=== PATIENT | female | born 1975 | race Caucasian/White ===

== ENCOUNTER 2019-08-17 07:11 | Outpatient (CLI) | payer OTHER, SELFPAY ==
[2019-08-17 07:47] LABS: Hematocrit 41.5 % (37.0-47.0)
== END 2019-08-17 07:12 | disposition home or self-care (01) ==
LOC: ANHLAB 07:13
PROVIDERS: Visit Provider Student in an Organized Health Care Education/Training Program
DX: Z01.818 Encounter for other preprocedural examination (principal); N84.0 Polyp of corpus uteri
CPT/HCPCS: 36415; 85014; 85018

== ENCOUNTER 2019-08-20 06:24 | Outpatient (CLI) | payer OTHER, SELFPAY ==
[2019-08-20 18:35] LABS: SARS-CoV-2 RNA PCR Negative
== END 2019-08-20 06:25 | disposition home or self-care (01) ==
LOC: ANHCOVIDDT 06:24
PROVIDERS: Visit Provider Student in an Organized Health Care Education/Training Program
DX: Z01.818 Encounter for other preprocedural examination (principal); Z11.59 Encounter for screening for other viral diseases
CPT/HCPCS: 87635; C9803; U0003

== ENCOUNTER 2019-08-22 02:00 | Day surgery (SDC) | payer OTHER, SELFPAY ==
[2019-08-16 16:11] VITALS: BMI 29.0
--- NOTE | 2019-08-22 06:57 | PM.IMHP ---
H&P: HPI History of Present Illness Chief complaint: Uterine Polyp/ Irregular Bleeding Narrative: Priyanka Dyer is a 44 year old female who presented to the office for IUD removal. The IUD removal was complicated by the presence of a cervical polyp. Attempt at in office IUD removal was unsuccessful due to endocervical canal obstruction by polyp. Pt was then scheduled for Hysteroscopy, polypectomy and IUD removal. Review of Systems Review of Systems: All systems reviewed & are unremarkable except as noted in HPI and below Cardiovascular: Cardiovascular: Denies chest pain, Denies leg edema, Denies palpitations, Denies dyspnea and Denies dyspnea on exertion Respiratory: Respiratory: Denies cough, Denies dyspnea and Denies dyspnea on exertion Gastrointestinal: Gastrointestinal: Denies abdominal pain, Denies constipation, Denies diarrhea, Denies nausea and Denies vomiting Genitourinary: Genitourinary: Denies hematuria, Denies urinary frequency, Denies dysuria, Denies pelvic pain, Denies urinary incontinence and Denies vaginal discharge Neurologic: Reports system reviewed and no additional complaints, except as documented Psychiatric: Psychiatric: Reports no additional psychiatric complaints Endocrine: Endocrine: Denies palpitations [facility] Family History Family History (Updated 09/18/18 @ 10:39 by DOCTOR UNKNOWN) Father Malignant neoplasm of prostate Family history of heart disease in male family member before age 55 Mother Family history of rheumatoid arthritis Other Hypertension Social History Social History Smoking status: Never smoker Second hand tobacco smoke exposure: No Alcohol intake: never Meds Home Medications and Allergies Home Medications Medication Instructions Recorded Confirmed Type fluticasone propionate [Flonase 1 spray INTRANASAL BID 08/16/19 08/16/19 History Allergy Relief] Allergies Allergy/AdvReac Type Severity Reaction Status Date / Time latex Allergy Unknown Itching Verified 08/16/19 16:12 Exam Const: General: no acute distress Eyes: EOM: EOMs intact bilaterally Neck: Neck: supple Thyroid: thyroid normal Chest: Breast/axilla inspection: normal inspection of the breasts Breast/axilla palpation: normal palpation of the breasts, normal palpation of the axillae and no axillary lymphadenopathy Resp: Effort & Inspection: normal respiratory effort Auscultation: clear to auscultation bilaterally Cardio: Rate: regular rate Rhythm: regular rhythm GI: Inspection: non-distended GI Palp: Yes Soft to palpation, No Tenderness to palpation present (GI) and No Guarding due to palpation present (GI) Auscultation: normal bowel sounds : General: No bladder normal to palpation External Female Exam: normal external appearance Speculum Exam - Vagina: normal vaginal discharge and No vaginal bleeding Speculum Exam - Cervix: nontender Bimanual exam- vagina & uterus: No bladder normal to palpation and No Cervical tenderness present OB/external & speculum: No vaginal bleeding Skin: General skin exam: normal color and no rashes or lesions noted Neuro: Cognition (Neuro): normal cognition Speech: normal speech Extrem: General: normal to inspection and no edema Psych: Mental Status: mental status grossly normal Affect: normal affect Assessment and Plan Assessment and plan (1) Polyp at cervical os: Code(s): N84.1 - Polyp of cervix uteri Status: Acute Assessment and Plan: polyp noted to obstruct endocervical canal plan for hysteroscopy and polypectomy (2) IUD (intrauterine device) in place: Code(s): Z97.5 - Presence of (intrauterine) contraceptive device Status: Acute Assessment and Plan: IUD in place, plan for removal at the time of polypectomy
[2019-08-22 10:15] VITALS: BP 133/97; PULSE 67; TEMP 37.6; O2SAT 99
[2019-08-22] MEDS: LACTATED RINGERS 1,000 ML 30 ML IV CONT (10:32)
--- NOTE | 2019-08-22 11:04 | WPDANESEPPF ---
Anes - Initial Pre Proc Eval Procedure: Operation Date: 08/22/19 12:00 Proposed Procedures p Hysteroscopy, Dilation And Curettage With Polypectomy - Espinoza Hauser MD Date/Time: 08/22/19 11:04 Surgeon: Espinoza Hauser MD Pre Op Diagnosis: Uterine Polyp/ Irregular Bleeding Patient Data Age: 44 Gender: F Height: 5 ft 6 in Weight: 84.1 kg Last Vital Signs Temp 37.6 C H 08/22/19 10:15 Pulse 67 08/22/19 10:15 BP 133/97 H 08/22/19 10:15 Pulse Ox 99 08/22/19 10:15 Allergies Allergy/AdvReac Type Severity Reaction Status Date / Time latex Allergy Unknown Itching Verified 08/16/19 16:12 Home Medications Medication Instructions Recorded Confirmed Type fluticasone propionate [Flonase 1 spray INTRANASAL BID 08/16/19 08/22/19 History Allergy Relief] Patient hx anesthesia problems: post op nausea/vomiting Family hx anesthesia problems: none PMFSH Family History Family History Father Malignant neoplasm of prostate Family history of heart disease in male family member before age 55 Mother Family history of rheumatoid arthritis Other Hypertension Social History Social History Smoking status: Never smoker Second hand tobacco smoke exposure: No Alcohol intake: never Anes - Eval Final PreProcedure Day of Procedure 08/22/19 11:04 Patient weight: overweight Heart: regular rate and rhythm Lungs: clear to auscultation Airway: Mallampati scale class II Neurological: alert and oriented Last oral intake: >/= 8 hours ASA classification: II Emergent: no Anesthetic plan: proceed Anesthesia type and monitoring: general GIVS and standard monitoring Informed Consent: The patient's anesthetic plan and its attendant risks and benefits were discussed with the patient/family/POA. Questions were solicited and answers provided to the satisfaction of the patient/family/POA.
[2019-08-22] MEDS: SCOPOLAMINE 1.5 MG PATCH TRANSDERM (11:10)
[2019-08-22] MEDS: LIDOCAINE HCL 1% LOCAL INJ 20 ML VIAL INFILTRATE (12:24)
--- NOTE | 2019-08-22 12:33 | PM.PROC ---
Procedure Note - Detailed Date of procedure: 08/22/19 Pre-op diagnosis: Uterine Polyp/ Irregular Bleeding Post-op diagnosis: same Procedure performed: Paracervical block, Hysteroscopy, polypectomy, IUD removal Description of procedure: The patient was taken to the OR and general anesthesia induced. She was prepped and draped in Yellow fin stirrups with support of the back and bilateral lower extremities. I/O catheterization performed of the bladder. The polyp was identified proturding through the external cervical os. Infiltration with 1% lidocaine at the 3 and 9 o'clock cervical positions was performed. The polyp was grasped with polyp forceps. The polyp was twisted around its stalk and removed easily with tension. After removal of the polyp, the IUD strings were easily visualized at the cervical os. The strings were grasped with Ring forceps and the IUD was removed without difficulty. The IUD was inspected and noted to be intact with strings attached. A single tooth tenaculum was placed on the anterior lip of the cervix. The cervix was dilated with sequential Dolly dilators. Hysteroscopy, using a normal saline medium, was performed and showed a normal endometrial cavity with normal appearing tubal ostia bilaterally. Sharp uterine curettage was then performed and tissue placed on Telfa. The tenaculum was removed and hemostasis was observed. The patient tolerated the procedure well. Sponge, lap, and needle counts were correct. The patient had SCD's on throughout the case for VTE prophylaxis. The patient was taken to the recovery room in stable condition. Anesthesia: GETA Surgeon: Espinoza Hauser MD Estimated blood loss (mL): 15 Urine output (mL): 10 Drains: No Packing: No Pathology: yes (endometrial curettings, endometrial polyp ) Complications: No immediate complications Condition: stable Disposition: PACU Findings: endometrial polyp protruding through the external cervical os. Normal appearing uterine cavity and tubal ostia bilaterally.
[2019-08-22 12:38] VITALS: BP 146/93; PULSE 77; RESP 16; O2SAT 98
[2019-08-22 13:10] VITALS: BP 147/91; PULSE 62; RESP 16
[2019-08-22 13:40] VITALS: BP 140/90; PULSE 55; RESP 14
== END 2019-08-22 13:45 | disposition home or self-care (01) ==
PROVIDERS: Visit Provider Student in an Organized Health Care Education/Training Program
PROC: 0U5B8ZZ Destruction of Endometrium, Via Natural or Artificial Opening Endoscopic (ICD-10-PCS; CPT 58563; principal; 2019-08-22 12:00)
DX: N84.0 Polyp of corpus uteri (principal); N93.9 Abnormal uterine and vaginal bleeding, unspecified; Z30.432 Encounter for removal of intrauterine contraceptive device
CPT/HCPCS: 58558; 58301; 88305; A9270; J2250; J3010; J7030; J7120

== ENCOUNTER 2020-06-27 19:07 | Emergency (ER) | payer OTHER, SELFPAY ==
[2020-06-27] VITALS (10 sets, daily range): BP systolic 150–191; BP diastolic 107–122; PULSE 67–94; RESP 13–18; TEMP 36.4; O2SAT 97
--- NOTE | ~2020-06-27 | CT_ITS ---
EXAMINATION: CT brain wo con DATE: 06/27/2020 19:32 INDICATION: Generalized headache. Hypertension. TECHNIQUE: Computed tomography (CT) of the head was performed without intravenous contrast. The mA wa s adjusted according to patient size. Iterative reconstruction technique was employed. Exam dose: 60 5.33 mGy-cm total exam DLP. COMPARISON: None FINDINGS: No intracranial mass lesion or hemorrhage or cerebrovascular accident. No midline shift or mass effect. Normal rogers-white matter differentiation. Normal ventricular size. No subdural or epidur al hematoma. The orbits are normal. There is patchy soft tissue opacification of the ethmoid air cells bilaterally. Mastoid air cells are normally developed and aerated. No fracture or bone destruction cranial vault. IMPRESSION: No significant intracranial abnormality Patchy soft tissue opacification of ethmoid air cells bilaterally Reviewed, dictated and finalized at [facility] Reviewed, dictated and finalized at [facility].
--- NOTE | 2020-06-27 19:23 | ECG_ITS ---
Measurements Intervals [place] Rate: 92 P: 59 TN: 147 QRS: 52 QRSD: 85 T: 29 QT: 353 QTc: 438 Interpretive Statements SINUS RHYTHM BORDERLINE ST-T WAVE ABNORMALITY- ANTEROLAT/INF LEADS BASELINE WANDER- II, III, V3-V4 BORDERLINE ECG Electronically Signed On 06-27-2020 19:36:10 CDT by Marvin Murray D.O.
--- NOTE | 2020-06-27 19:23 | ED.GENADULT ---
HPI - General Adult General Chief complaint: Recheck/Abnormal Lab/Rx Stated complaint: h/a, high blood pressure reading Time Seen by Provider: 06/27/20 19:19 Source: RN notes reviewed History of Present Illness HPI narrative: Patient presents to emergency department from home for elevated blood pressure. Patient states that she has a history of hypertension in her 30s and has been on metoprolol in the past she states that her blood pressure improved with medication for several years she states that over the past several weeks she has felt like her blood pressure has been increasing and she has felt hot she is for the past 2 days she is had a headache at the top of her head described as aching does not radiate states she took ibuprofen earlier today with no relief she denies any fevers or chills vision changes, chest pain, shortness of breath, abdominal pain, nausea vomiting, numbness or tingling extremities or any other symptoms she states she does not currently have a PCP. Related Data Home Medications Medication Instructions Recorded Confirmed fluticasone propionate [Flonase 1 spray INTRANASAL BID 08/16/19 08/22/19 Allergy Relief] Allergies Allergy/AdvReac Type Severity Reaction Status Date / Time latex Allergy Unknown Itching Verified 06/27/20 19:14 Review of Systems Review of Systems: Narrative: Gen.: Denies fevers or chills Eyes: Denies eye pain or visual change ENT: Denies congestion Respiratory: Denies shortness of breath or cough CV: Denies chest pain or palpitations GI: Denies abdominal pain nausea, emesis or diarrhea Musculoskeletal: Denies back pain or muscle pain Neuro: Reports headache Skin: Denies rash Except as documented, all other systems reviewed and negative [facility] Past Medical History Medical History Polyp at cervical os Family History Family History Father Malignant neoplasm of prostate Family history of heart disease in male family member before age 55 Mother Family history of rheumatoid arthritis Other Hypertension Social History Social History Smoking status: Never smoker Second hand tobacco smoke exposure: No Alcohol intake: never Exam Narrative: Exam Narrative: APPEARANCE: No acute distress, nontoxic, resting in bed EYES: EOMI, PERRL HEENT: Normocephalic, atraumatic, OMM RESPIRATORY: No respiratory distress Clear to auscultation bilaterally with no rhonchi wheezing or rales. CARDIOVASCULAR: Regular rate and rhythm without murmurs rubs or gallops. ABDOMINAL: Soft, nontender, nondistended, no rebound or guarding MUSCULOSKELETAl: Moves all extremities. No clubbing, cyanosis or edema. NEURO: Awake and alertx 4. Following commands, speech normal, no focal deficits SKIN:: Warm, dry. No rashes lesions or abrasions PSYCHIATRIC: Normal affect/mood, Course Course Emergency Course: Patient states headache is resolved at this time Discussed with patient results of workup and diagnosis. Discussed need for follow-up with primary care, proper use of medication, and reasons to return to the emergency department. Patient understands and agrees to current treatment plan Vital Signs Vital signs: Vital Signs Temperature 97.6 F 06/27/20 19:10 Pulse Rate 94 06/27/20 19:10 Respiratory Rate 18 06/27/20 19:10 Blood Pressure 173/122 H 06/27/20 19:10 Pulse Oximetry 97 06/27/20 19:10 Temperature 97.6 F 06/27/20 19:10 Pulse Rate 85 06/27/20 20:23 Respiratory Rate 14 06/27/20 20:23 Blood Pressure 150/110 H 06/27/20 22:20 Pulse Oximetry 97 06/27/20 20:23 Medical Decision Making MDM Narrative Medical decision making narrative: Patient's headache was not sudden or maximal in onset. There are no focal deficits on exam. Subarachnoid hemorrhage is felt to be unlikely at this time. There is no his
[2020-06-27 19:33] LABS: Basophils Absolute Auto 0.1 K/mm3 (0.0-0.1); Basophils Percent Auto 1.2 % (0.2-1.2); Eosinophils Absolute Auto 0.3 K/mm3 (0-0.3); Hematocrit 42.8 % (37.0-47.0); Hemoglobin 14.7 g/dL (12.0-15.0); Immature Granulocyte Absolute 0.02 K/mm3 (0.00-0.031); Immature Granulocyte Percent A 0.3 % (0-0.5); Lymphocytes Absolute Auto 3.13 K/mm3 (0.9-3.2); Lymphocytes Percent Auto 46.6 % (18.3-44.2); Mean Corpuscular HGB Conc 34.3 g/dl (32-36); Mean Corpuscular Hemoglobin 29.9 pg (26-34); Mean Corpuscular Volume 87.2 fl (80-100); Mean Platelet Volume 10.9 fl (7.4-10.4); Monocytes Absolute Auto 0.5 K/mm3 (0.1-0.6); Monocytes Percent Auto 6.8 % (2.6-8.5); Neutrophils Absolute Auto 2.8 K/mm3 (1.3-6.7); Neutrophils Percent Auto 41.1 % (45.5-73.1); Platelet Count Result 331 k/mm3 (150-375); Red Blood Count 4.91 M/mm3 (4.2-5.4); Red Cell Distribution Width 12.1 % (11.5-14.5); White Blood Count 6.7 K/mm3 (4.5-10.0)
[2020-06-27] MEDS: SODIUM CHLORIDE 0.9% IV 1,000 ML 999 ML IV CONT (19:41)
[2020-06-27 19:45] LABS: Alanine Aminotransferase 23 U/L (4-35); Albumin Level 4.5 g/dL (3.5-5.1); Alkaline Phosphatase 53 U/L (38-126); Anion Gap 9 mmol/L (8-16); Aspartate Amino Transferase 25 U/L (14-36); Bilirubin,Total 0.2 mg/dL (0.2-1.3); Blood Urea Nitrogen 18 mg/dL (7-17); Calcium 9.4 mg/dL (8.4-10.2); Carbon Dioxide 24 mmol/L (22-30); Chloride 107 mmol/L (98-107); Estimated CRCL calculation 68 ml/min; Estimated Glomerular Filt Rate 60; Glucose 91 mg/dL (65-105); Potassium 3.4 mmol/L (3.4-5.0); Sodium 140 mmol/L (137-145)
[2020-06-27] MEDS: cloNIDine HCL 0.1 MG TABLET PO (20:42)
[2020-06-27 22:40] LABS: Add Urine Microscopic? YES; Appearance Urine Cloudy (Clear); Bilirubin Urine Negative (Negative); Blood Urine 2+ (Negative); Color Urine Straw (Yellow); Glucose Urine UA Negative (Negative); Ketones Urine Negative (Negative); Leukocyte Esterase Ur 1+ LEU/UL (Negative); Nitrate Urine Negative (Negative); Protein Urine Negative (Negative); RBC Urine 0-2 /hpf (0-2); Squamous Epithelial Cell Urine Many /hpf (Few); Urobilinogen Urine Negative mg/dL (<2.0)
[2020-06-27] MEDS: NITROFURANTOIN MONOHYD MACROCR 100 MG CAP PO (23:07)
== END 2020-06-27 23:16 | disposition home or self-care (01) ==
PROVIDERS: Emergency Provider Emergency Medicine
DX: I10 Essential (primary) hypertension (principal); R51.9 Headache, unspecified; N39.0 Urinary tract infection, site not specified
CPT/HCPCS: 36415; 70450; 80053; 81001; 85025; 87077; 87086; 87088; 93005; 96365; 99284; A9270; J0131; J7030

== ENCOUNTER 2021-09-02 22:06 | Emergency (ER) | payer OTHER, SELFPAY ==
[2021-09-02 22:08] VITALS: BP 121/98; PULSE 80; RESP 18; TEMP 36.8; O2SAT 98
[2021-09-02] MEDS: LORATADINE 10 MG TABLET PO (22:55)
[2021-09-02] MEDS: diphenhydrAMINE HCl INJ 50 MG/ML VIAL 25 MG IV PUSH (22:55)
--- NOTE | 2021-09-03 00:57 | ED.ALLEREA ---
HPI - Allergic Reaction General Chief complaint: Allergic Reaction Stated complaint: allergic reaction Time Seen by Provider: 09/02/21 22:21 History of Present Illness HPI narrative: Patient is a 46-year-old female who presents ER with rash. Symptoms began occurring spontaneously 1 day ago. She has been taking Benadryl 50 mg every 6 hours. She was seen at an urgent care and prescribed a Medrol Dosepak. She has had the first day of pills. She also received a steroid shot prior to filling the Dosepak which helped the symptoms. She reports she will get a little swelling to her upper lip. She gets urticaria and redness with pruritus to the arms and legs as well as her palms. She has no new exposures to soaps or perfumes. No change in laundry detergent or fabric softener. She is on no oral medications other than what his been prescribed for her new rash. She reports 3 days prior to onset she had been exposed to a couple of dogs but she had since taken a shower and was not wearing same clothes. There is 1 cat in the house that they have had for over a year. Patient reports she has an aunt that suffers from idiopathic urticaria. Related Data Home Medications Medication Instructions Recorded Confirmed fluticasone propionate 50 1 spray intranasal BID 08/16/19 08/22/19 mcg/actuation nasal spray,suspension (Flonase Allergy Relief) Allergies Allergy/AdvReac Type Severity Reaction Status Date / Time latex Allergy Unknown Itching Verified 06/27/20 19:14 Review of Systems Review of Systems: All systems reviewed & are unremarkable except as noted in HPI and below Constitutional: Constitutional: Denies chills, Denies fatigue and Denies fever(s) ENT: Denies nasal congestion and Denies sore throat Comments: No dysphagia Cardiovascular: Cardiovascular: Denies chest pain, Denies rapid heart rate and Denies radiating jaw, neck or arm pain Respiratory: Respiratory: Denies chest congestion, Denies cough and Denies dyspnea Gastrointestinal: Gastrointestinal: Denies abdominal pain, Denies nausea and Denies vomiting Integumentary/Breasts: Skin/Breast: Reports pruritus, Reports erythema, Reports rash and Denies skin ulcer PMFSH Past Medical History Medical History (Updated 09/03/21 @ 02:00 by Vito Hess MD) Hyperlipidemia Hypertension Hypothyroidism Polyp at cervical os Family History Family History Father Malignant neoplasm of prostate Family history of heart disease in male family member before age 55 Mother Family history of rheumatoid arthritis Other Hypertension Social History Social History Smoking status: Never smoker Second hand tobacco smoke exposure: No Alcohol intake: never Exam Narrative: GENERAL: Well-appearing, well-nourished, and in no acute distress. HEAD: Normocephalic, atraumatic. EYES: PERRL and EOMI. ENT Mucous membranes moist. Very slight swelling right upper lip. No severe lingular swelling or edema to the tongue. Normal-appearing posterior oropharynx. NECK: Supple. CHEST: Clear to auscultation. No respiratory distress. HEART: Regular rate and rhythm. Normal peripheral pulses. ABDOMEN: Soft, nontender, nondistended. EXTREMITIES: Normal range of motion. No edema. SKIN: Warm, dry. Urticarial rash most notable in the upper extremities and over the same of the palms. Also present over the kneecaps bilaterally. Dried calamine lotion to the arms noted. NEURO: Alert and oriented x3. PSYCH: Normal mood and affect. Course Course Emergency Course: No overall response to famotidine or Benadryl or epinephrine. Recommend scheduled antihistamines for home. Patient also did not initially disclose to me the medication she is taking at home but did discuss with the nurse. Discussed with her that she should discontinue her home medications as they may be causin
--- NOTE | 2021-09-03 01:28 | PC.NURSE ---
This nurse gave 25mg benadryl IV at 0000 09/03/21. This nurse also gave 0.3mg epinephrine IM to left lateral thigh and 20mg IV famotidine at 0110 09/03/21. Unable to chart medications at this time.
[2021-09-03 02:03] VITALS: BP 142/97; PULSE 74; RESP 18; O2SAT 100
== END 2021-09-03 02:04 | disposition home or self-care (01) ==
PROVIDERS: Emergency Provider Emergency Medicine; PCP Physician Assistant
DX: L50.1 Idiopathic urticaria (principal); E78.5 Hyperlipidemia, unspecified; I10 Essential (primary) hypertension; E03.9 Hypothyroidism, unspecified
CPT/HCPCS: 96374; 99284; A9270; J0171; J1200